=== PATIENT | female | born 1955 | race Caucasian/White ===

== ENCOUNTER 2016-10-10 10:29 | Emergency (ER) | payer OTHER ==
--- NOTE | 2016-10-10 12:25 | UC ---
lorin Grady Timothy, scribed for Jasmyne Bethea MD on 10/10/16 at 1204 . Skin Complaint HPI - HPI Summary HPI Summary: Agustina Ravi is a 60 yo female presenting to [facility] with a 4-5 cm area on her right shoulder which is red and tender, in 8/10 sharp, burning pain when palpated, first noted 2 days ago. She reports had a bug bite that she itche. REddness has been growing over the past 2 days. No drainage. She denies any fevers or chills , as well as change in appetite. She states her son and have MRSA. Pt on immunosuppressants for MS. Her MHx includes thyroid disease, ulnar nerve surgery on LUE, , appendectomy. Pt medication list reviewed this visit. - History of Current Complaint Chief Complaint: UCSkin Time Seen by Provider: 10/10/16 11:49 Stated Complaint: SOFT TISSUE COMPLAINT Hx Obtained From: Patient Onset/Duration: Sudden Onset, Lasting Days, Still Present Skin Exposure Onset/Duration: Days Ago Timing: Constant Onset Severity: Moderate Current Severity: Moderate Pain Intensity: 8 Pain Scale Used: 0-10 Numeric Location: Other - right shoulder Character: Painful Associated Signs & Symptoms: Positive: Rash. Negative: Fever, Chills - Allergy/Home Medications Allergies/Adverse Reactions: Allergies Allergy/AdvReac Type Severity Reaction Status Date / Time No Known Allergies Allergy Verified 10/10/16 10:34 Review of Systems Constitutional: Negative Skin: Rash - erythema right anterior shoulder Eyes: Negative ENT: Negative Respiratory: Negative Cardiovascular: Negative Gastrointestinal: Negative Genitourinary: Negative Motor: Negative Neurovascular: Negative Musculoskeletal: Negative Neurological: Negative Psychological: Negative All Other Systems Reviewed And Are Negative: Yes PMH/Surg Hx/FS Hx/Imm Hx Endocrine History: Thyroid Disease Neurological History: Other - MS Other Neurological History: MS - Surgical History Surgical History: Yes Surgery Procedure, Year, and Place: unla nerve moved on left arm c/sec appy - Family History Known Family History: Positive: Hypertension, Diabetes Negative: Cardiac Disease - Social History Alcohol Use: Occasionally Substance Use Type: None Smoking Status (MU): Never Smoked Tobacco Physical Exam Triage Information Reviewed: Yes Appearance: Well-Appearing, No Pain Distress, Well-Nourished Vital Signs: Initial Vital Signs Temp 97.5 F 10/10/16 10:34 Pulse 69 07/05/17 10:34 Resp 18 10/10/16 10:34 Pulse Ox 100 10/10/16 10:34 Vital Signs Reviewed: Yes ENT Exam: Normal ENT: Positive: Normal ENT inspection Dental Exam: Normal Neck exam: Normal Neck: Positive: Supple, Nontender Respiratory Exam: Normal Respiratory: Positive: Chest non-tender, Lungs clear, Normal breath sounds Cardiovascular Exam: Normal Cardiovascular: Positive: RRR, No Murmur Abdominal Exam: Normal Abdomen Description: Positive: Nontender, No Organomegaly, Soft Bowel Sounds: Positive: Present Musculoskeletal Exam: Normal Musculoskeletal: Positive: Strength Intact, ROM Intact Neurological Exam: Normal Neurological: Positive: Alert Psychological Exam: Normal Skin: Positive: Other - right anterior, medial aspect of shoulder over ac joint pt wiith 2 x4 cm area of erythema warmth, no induration, no fluctuance, no drainage TTP Re-Evaluation - Re-Evaluation First Eval Re-Evaluation Time: 12:19 Change: Unchanged Comment: Demarcated area on Pt's right shoulder. Area is approximately 4cm caudal cephalad x 2cm Course/Dx - Course Course Of Treatment: Agustina Ravi is a 60 yo female presenting to [facility] with a 4-5 cm area priyanka eryon her right shoulder which causes 8/10 sharp, burning pain when palpated, first noted 2 days ago. Pt is immunocompromised second to MS treatment. family with MRSA - Differential Diagnoses - Skin Complaint Differential Diagnoses: Cellulitis - Diagnoses Provider Diagnoses: cellulitis Discharge - Discharge Plan Condition: Stable Disposition: HOME Prescriptions: DOXYcycline CAP(*) [DOXYcycline 100MG CAP(*)] 100 mg PO BID #20 cap Patient Education Materials: Cellulitis (ED), Warm Compress or Soak (ED) Referrals: [facility] REFERRAL [Outside] - 2 Days Additional Instructions: - Take antibiotics as prescribed until gone - Apply warm, wet soaks 20 minutes at a time, 2-3 times a day - Monitor your wound for increased reddness, red streaking, drainage. If you develop these symptoms, fevers, chill or any other concerns you should return here or go the emergency department - Contact your doctor or return with questions or concerns The documentation as recorded by the lorin gandhi Timothy accurately reflects the service I personally performed and the decisions made by , Jasmyne Bethea MD.
== END 2016-10-10 12:39 | disposition home or self-care (01) ==
LOC: UCEAST 10:29
DX: L03.113 Cellulitis of right upper limb (principal); G35 Multiple sclerosis
CPT/HCPCS: 99202; G0463